=== PATIENT | male | born 1970 | race Caucasian/White ===

== ENCOUNTER 2016-07-26 06:23 | Day surgery (SDC) | payer BC ==
[2016-07-22 09:04] LABS: HEMATOCRIT 43.7 % (40.0-51.0); HEMOGLOBIN 15.3 g/dL (13.6-17.8)
[2016-07-22 09:17] LABS: A/G RATIO 1.2 (0.7-1.9); ALBUMIN 3.9 G/DL (3.5-5.0); BUN (BLOOD UREA NITROGEN) 12 MG/DL (6-23); CALCIUM, SERUM 8.6 MG/DL (8.5-10.4); CHLORIDE, SERUM 107 MMOL/L (96-112); CO2 (CARBON DIOXIDE) 26 MMOL/L (24-34); CREATININE 1.09 MG/DL (0.70-1.30); GFR AFRICAN AMERICAN 95 ML/MIN (>=60); GFR NON AFRICAN AMERICAN 82 ML/MIN (>=60); GLOBULIN 3.3 G/DL (2.5-4.1); GLUCOSE, SERUM 99 MG/DL (60-99); POTASSIUM, SERUM 3.8 MMOL/L (3.5-5.3); SGOT(AST) 17 U/L (5-40); SGPT(ALT) 38 U/L (5-65); SODIUM, SERUM 143 MMOL/L (135-148); TOTAL BILIRUBIN 0.4 MG/DL (0-1.2); TOTAL PROTEIN 7.2 G/DL (6.0-8.5)
[2016-07-22 09:21] LABS: ALKALINE PHOSPHATASE 75 U/L (45-117)
--- NOTE | ~2016-07-26 | OP ---
Record Of Operation [facility] [address] [place]. [address] NAME: JUAN AVENDANO : 70 STATUS : [facility]#: [id number] AGE: 45 ADM/REG DATE : 07/26/16 MR#: [id number] REPORT SERV DATE: 07/30/16 DICTATED BY: PARTH CURRAN DATE: 07/30/16 REPORT STATUS : Draft TRANSCRIBED BY: MODL DATE: 07/30/16 DATE OF PROCEDURE: 07/26/2016 PREOPERATIVE DIAGNOSIS: Incarcerated umbilical hernia. POSTOPERATIVE DIAGNOSIS: Incarcerated umbilical hernia. PROCEDURE: Reduction and mesh patch repair of incarcerated umbilical hernia. SURGEON: Parth Curran M.D. DESCRIPTION OF OPERATIVE PROCEDURE: The patient was brought to the operating suite, placed in a supine position, underwent satisfactory general endotracheal anesthesia without incident. The skin of the abdomen was scrubbed, prepped, and draped in the usual sterile fashion. Marcaine 0.5% with epinephrine was utilized as supplemental local anesthesia. An infraumbilical curvilinear incision was performed dissecting through the skin and subcutaneous tissue. The skin was elevated off the large protrusion of preperitoneal fat and mesothelial hernia sac. The sac and fat were excised at the level of the fascia. There was then a circular defect. The overlying subcutaneous tissue was cleaned off the fascia circumferentially for 360 degrees and it was judged that a PVPM bicomponent mesh patch would be satisfactory to repair the defect. Accordingly, a PVPM patch was dipped in local anesthesia, folded up like a taco, and placed in the peritoneal cavity. It was withdrawn by grasping the two suturing tails and impacting the patch to the underneath surface of the midline fascia. Stay sutures of 0 Ethibond were placed full-thickness through the medial aspects of the rectus sheath bilaterally, taking an intervening bite of the patch. This was successful in securing it laterally through the rectus sheath. Two suturing tails were trimmed in a "[id number]" interrupted vertical mattress fashion, the cephalad aspect of the midline fascia was drawn over the caudad aspect, again incorporating the suturing tails of the mesh. Subcutaneous tissue was irrigated and closed with multiple sutures of interrupted 3-0 Vicryl. Any redundant cleaned out umbilical skin was trimmed and closed with running subcuticular stitch of 4-0 Vicryl. Dermabond skin adhesive applied. The patient tolerated the procedure well and was returned to PACU in stable condition. At the termination of the procedure, sponge, needle, lap, and instrument counts were correct x3. ESTIMATED BLOOD LOSS: Negligible. Record Of Operation [facility] [id number] [facility] [place]. [address] NAME: JUAN AVENDANO : 70 STATUS : [facility] PAT#: [id number] AGE: 45 ADM/REG DATE : 07/26/16 MR#: [id number] REPORT SERV DATE: 07/30/16 DICTATED BY: PARTH CURRAN DATE: 07/30/16 REPORT STATUS : Draft TRANSCRIBED BY: SAGAR DATE: 07/30/16 ANDRE/SAGAR Parth Curran M.D. / [id number] CC: Juan Potter M.D.
[~2016-07-26 06:23] MED LIST: PRIN10 PO
== END 2016-07-26 11:38 | disposition home or self-care (01) ==
LOC: SDC 06:23
PROVIDERS: Specialist
PROC: 0WUF0JZ Supplement Abdominal Wall with Synthetic Substitute, Open Approach (ICD-10-PCS; principal; 2016-07-26 07:45)
DX: K42.0 Umbilical hernia with obstruction, without gangrene (principal); K21.9 Gastro-esophageal reflux disease without esophagitis; F17.210 Nicotine dependence, cigarettes, uncomplicated; I10 Essential (primary) hypertension; Z87.442 Personal history of urinary calculi; Z88.1 Allergy status to other antibiotic agents; Z88.2 Allergy status to sulfonamides; Z79.899 Other long term (current) drug therapy; Z98.890 Other specified postprocedural states
CPT/HCPCS: 80053; 85014; 85018; 87641; 93005; A9270-GY; C1781; J0330; J0690; J1885; J2250; J2270; J2370; J2405; J2710; J3010